=== PATIENT | male | born 1995 | race Two or more races ===

== ENCOUNTER 2022-12-19 20:19 | Emergency (ER) | payer MEDICAID, OTHER ==
[~2022-12-19] VITALS: Ht 180.3 cm; Wt 68.4 kg
[2022-12-19 22:59] VITALS: BP 125/93; PULSE 68; RESP 18; TEMP 97.8; O2SAT 97
[2022-12-19] MEDS ORDERED: TRIO1TP EX (23:14)
[2022-12-19] MEDS ORDERED: HYDR25CA PO (23:14)
[2022-12-19] MEDS ORDERED: DexAMETHasone SOD PHOS 10MG/1ML VIAL INJ IM ONE (23:15)
[2022-12-19] MEDS ORDERED: diphenhdrAMINE HCL 25 MG CAP PO ONE (23:15)
== END 2022-12-20 02:32 | disposition home or self-care (01) ==
LOC: ER 20:19
DX: L30.9 Dermatitis, unspecified (principal)
CPT/HCPCS: 96372; 99283; J1100